=== PATIENT | female | born 1980 | race Two or more races ===

== ENCOUNTER 2019-08-07 15:16 | Emergency (ER) | payer SELFPAY ==
[~2019-08-07] VITALS: Ht 170.2 cm; Wt 62.0 kg
[2019-08-07] MEDS ORDERED: IBUPROFEN 600MG TABLET PO ONE (17:15)
[2019-08-07 17:58] VITALS: BP 158/90
== END 2019-08-07 19:08 | disposition home or self-care (01) ==
LOC: ER 15:16
DX: M25.571 Pain in right ankle and joints of right foot (principal); M79.671 Pain in right foot; M79.89 Other specified soft tissue disorders; X50.1XXA Overexertion from prolonged static or awkward postures, initial encounter; Y93.01 Activity, walking, marching and hiking; Y92.89 Other specified places as the place of occurrence of the external cause; Y99.8 Other external cause status
CPT/HCPCS: 29515; 73610; 73630; 99283

== ENCOUNTER 2020-11-24 20:35 | Emergency (ER) | payer SELFPAY ==
[~2020-11-24] VITALS: Ht 172.7 cm; Wt 61.0 kg
[2020-11-24 21:27] VITALS: BP 163/107
[2020-11-25 00:03] LABS: HEMATOCRIT. 28.2 % (36.0-48.0); HEMOGLOBIN. 9.2 g/dL (12.0-16.0); MEAN CORPUSCULAR HEMOGLOBIN 21.7 pg (28.0-32.0); MEAN CORPUSCULAR VOLUME 66.6 fL (81.0-99.0); PLATELET 420 x1000/uL (130-400); RED BLOOD CELL COUNT 4.23 mill/uL (4.2-5.4)
[2020-11-25 00:11] LABS: CHLORIDE 105 mEq/L (98-107)
[2020-11-25] MEDS ORDERED: POTASSIUM CHLORIDE 20MEQ TABLET SR PO ONE (00:30)
[2020-11-25 03:17] LABS: PLATELET ESTIMATE INCREASED
== END 2020-11-25 02:35 | disposition home or self-care (01) ==
LOC: ER 21:22
DX: E87.6 Hypokalemia (principal); R05 Cough; R53.1 Weakness
CPT/HCPCS: 36415; 71045; 80053; 85025; 93005; 99285